=== PATIENT | male | born 2000 | race Caucasian/White ===

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

== ENCOUNTER 2021-12-18 16:56 | Emergency (ER) | payer OTHER ==
[~2021-12-18] VITALS: Ht 170.1 cm; Wt 59.0 kg
[~2021-12-18 16:56] MED LIST changes: +NAPROSYN500 MG PO
[2021-12-18 17:10] VITALS: BP 109/72
[2021-12-18] MEDS ORDERED: IBUPROFEN600 MG PO (20:22)
[2021-12-18] MEDS ORDERED: METHOCARBAMOL750 M1 PO (20:22)
== END 2021-12-18 20:35 | disposition home or self-care (01) ==
LOC: ED 16:56
DX: S43.402A Unspecified sprain of left shoulder joint, initial encounter (principal); Z91.030 Bee allergy status; Z88.1 Allergy status to other antibiotic agents; Z90.89 Acquired absence of other organs; X58.XXXA Exposure to other specified factors, initial encounter; Y93.89 Activity, other specified; Y92.89 Other specified places as the place of occurrence of the external cause; Y99.8 Other external cause status

== ENCOUNTER 2023-03-29 13:47 | Emergency (ER) | payer MEDICAID ==
[~2023-03-29 13:47] MED LIST changes: +IBUPROFEN600 MG PO; +METHOCARBAMOL750 M1 PO
[2023-03-29 13:53] VITALS: BP 127/85
== END 2023-03-29 18:34 | disposition left against medical advice (07) ==
LOC: ED 13:47
DX: R05.9 Cough, unspecified (principal); Z91.030 Bee allergy status; Z88.2 Allergy status to sulfonamides; Z88.1 Allergy status to other antibiotic agents; Z88.8 Allergy status to other drugs, medicaments and biological substances; Z53.21 Procedure and treatment not carried out due to patient leaving prior to being seen by health care provider

== ENCOUNTER 2023-05-03 19:21 | Emergency (ER) | payer MEDICAID ==
[2023-05-03 22:00] VITALS: BP 125/70
[2023-05-03] MEDS ORDERED: OMNICEF300 MG PO (22:48)
== END 2023-05-03 22:54 | disposition home or self-care (01) ==
LOC: ED 19:21
DX: J02.0 Streptococcal pharyngitis (principal); Z91.030 Bee allergy status; Z88.1 Allergy status to other antibiotic agents; Z88.2 Allergy status to sulfonamides; Z88.8 Allergy status to other drugs, medicaments and biological substances; Z20.822 Contact with and (suspected) exposure to COVID-19; Z98.890 Other specified postprocedural states; F17.290 Nicotine dependence, other tobacco product, uncomplicated

== ENCOUNTER → 2023-08-23 | Outpatient (CLI) | payer MEDICAID ==
[~2023-08-23] MED LIST changes: +OMNICEF300 MG PO
[2023-08-23 11:42] LABS: BASO % 0.5 % (0.0-1.0); BILIRUBIN Negative (Negative); BLOOD Negative (Negative); CLARITY Clear (Clear); COLOR Yellow (Yellow); EOS # 0.1 10*3/uL (0.0-0.4); EOS % 1.4 % (1.0-4.0); GLUCOSE Negative (Negative); HEMATOCRIT 48.8 % (42.0-52.0); KETONE Negative (Negative); LEUKO ESTERASE Negative (Negative); LYMPH # 2.1 10*3/uL (1.3-4.4); LYMPH % 37.7 % (27.0-41.0); MEAN CELL VOLUME 90.2 fl (80.0-94.0); MEAN CORPUSCULAR HGB 29.6 pg (27.0-31.0); MEAN CORPUSCULAR HGB CONC 32.8 g/dl (33.0-37.0); MEAN PLATELET VOLUME 9.4 fl (9.6-12.3); MONO # 0.4 10*3/uL (0.1-1.0); MONO % 6.9 % (3.0-9.0); NEUT # 2.9 10*3/uL (2.3-7.9); NEUT % 53.3 % (47.0-73.0); NITRITE Negative (Negative); PLATELET COUNT AUTOMATED 159 10*3/uL (130-400); RED BLOOD COUNT 5.41 10*6/uL (4.50-5.90); RED CELL DISTRI WIDTH 12.4 % (0-14.5); RETICULOCYTE % 0.77 % (0.50-2.50); SPECIFIC GRAVITY 1.025 (1.001-1.030); UROBILINOGEN 0.2 E.U./dl (0.0-1.0); WHITE BLOOD COUNT 5.5 10*3/uL (4.8-10.8)
[2023-08-23 12:23] LABS: MUCOUS TRACE
[2023-08-23 12:33] LABS: TESTOSTERONE, TOTAL 488 ng/dL (113-882); VITAMIN D, 25-HYDROXY 31.8 ng/mL (30-100)
[2023-08-23 12:33] LABS: ALKALINE PHOSPHATASE 94 U/L (46-116); BUN 9 mg/dl (9-23); CHLORIDE 103 mmol/L (98-107); CHOLESTEROL 157 mg/dL (<200); GAMMA GLUTAMYL TRANSPEPTIDASE 16 U/L (0-73); LDL CHOLESTEROL 89 mg/dL (9-159); POTASSIUM 4.2 mmol/L (3.4-5.1); SGPT/ALT 15 U/L (5-49); T3 UPTAKE 25.7 % (22.4-36.7); TOTAL PROTEIN 7.1 gm/dL (6.0-8.0); TRIGLYCERIDES 97 mg/dl (<150); URIC ACID 5.5 mg/dL (3.7-9.2)
[2023-08-24 13:07] LABS: ANTI-DSDNA ANTIBODIES <1 IU/mL (0-9)
== END | disposition home or self-care (01) ==
LOC: LAB 11:09
PROVIDERS: ATTEND Family Medicine
DX: E55.9 Vitamin D deficiency, unspecified (principal); R79.89 Other specified abnormal findings of blood chemistry; R53.83 Other fatigue; E78.5 Hyperlipidemia, unspecified